=== PATIENT | female | born 1970 | race Caucasian/White ===

== ENCOUNTER → 2016-12-03 | Outpatient (CLI) | payer BC | LOC: COL.RAD 09:45 | DX: E04.2 Nontoxic multinodular goiter (principal) ==

== ENCOUNTER → 2016-12-21 | Outpatient (CLI) | payer BC | LOC: COL.VAS 13:59 | DX: R07.9 Chest pain, unspecified (principal) ==

== ENCOUNTER → 2017-12-08 | Outpatient (CLI) | payer BC ==
[~2017-12-08] VITALS: Ht 171.4 cm; Wt 115.4 kg
[~2017-12-08] MED LIST: ALDACTONE 25MG25 M1 PO; MOBIC 7.5MG7.5 MG PO; NEURONTIN300 MG/CAP PO; PROTONIX 40MG T40 MG PO; SAVELLA100 MG PO; ZESTORETIC 25 M1 TAB PO
[2017-12-08 08:13] VITALS: BP 124/100; PULSE 96
== END ==
LOC: LIGHT 07:30
DX: G47.33 Obstructive sleep apnea (adult) (pediatric) (principal); E78.5 Hyperlipidemia, unspecified; E66.9 Obesity, unspecified; Z68.39 Body mass index [BMI] 39.0-39.9, adult; Z71.3 Dietary counseling and surveillance
CPT/HCPCS: G0463

== ENCOUNTER → 2017-12-29 | Outpatient (CLI) | payer BC ==
[~2017-12-29] VITALS: Ht 171.4 cm; Wt 117.0 kg
[~2017-12-29] MED LIST changes: -ALDACTONE 25MG25 M1 PO; +ALDACTONE50 MG PO
[2017-12-29 15:10] VITALS: BP 130/80; PULSE 101
== END ==
LOC: LIGHT 14:23
DX: G47.33 Obstructive sleep apnea (adult) (pediatric) (principal); E78.5 Hyperlipidemia, unspecified; E66.9 Obesity, unspecified; Z68.39 Body mass index [BMI] 39.0-39.9, adult; Z71.3 Dietary counseling and surveillance
CPT/HCPCS: G0463

== ENCOUNTER → 2018-01-02 | Outpatient (CLI) | payer BC | LOC: LIGHT 14:12 | DX: Z01.89 Encounter for other specified special examinations (principal) ==

== ENCOUNTER → 2018-02-23 | Outpatient (CLI) | payer BC ==
[~2018-02-23] VITALS: Ht 171.4 cm; Wt 116.8 kg
[2018-02-23 16:39] VITALS: BP 124/86; PULSE 80
== END ==
LOC: LIGHT 15:53
DX: G47.33 Obstructive sleep apnea (adult) (pediatric) (principal); E78.5 Hyperlipidemia, unspecified; E66.9 Obesity, unspecified; Z68.39 Body mass index [BMI] 39.0-39.9, adult; Z71.3 Dietary counseling and surveillance
CPT/HCPCS: G0463

== ENCOUNTER → 2018-03-24 | Outpatient (CLI) | payer BC | LOC: BHSO 09:08 | DX: Z01.818 Encounter for other preprocedural examination (principal) ==

== ENCOUNTER → 2018-03-30 | Outpatient (CLI) | payer BC ==
[~2018-03-30] VITALS: Ht 171.4 cm; Wt 119.5 kg
== END ==
LOC: LIGHT 10:10
DX: G47.33 Obstructive sleep apnea (adult) (pediatric) (principal); E78.5 Hyperlipidemia, unspecified; E66.9 Obesity, unspecified; Z68.41 Body mass index [BMI] 40.0-44.9, adult; Z71.3 Dietary counseling and surveillance
CPT/HCPCS: G0463

== ENCOUNTER → 2018-04-27 | Outpatient (CLI) | payer BC ==
[~2018-04-27] VITALS: Ht 171.4 cm; Wt 117.9 kg
[2018-04-27 14:27] VITALS: BP 130/86; PULSE 84
== END ==
LOC: LIGHT 11:09
DX: G47.33 Obstructive sleep apnea (adult) (pediatric) (principal); E78.5 Hyperlipidemia, unspecified; E66.9 Obesity, unspecified; Z68.41 Body mass index [BMI] 40.0-44.9, adult; Z71.3 Dietary counseling and surveillance
CPT/HCPCS: G0463

== ENCOUNTER → 2018-05-11 | Outpatient (CLI) | payer BC ==
[~2018-05-11] VITALS: Ht 171.4 cm; Wt 117.3 kg
[2018-05-11 10:35] VITALS: BP 134/80; PULSE 64
== END ==
LOC: LIGHT 10:19
DX: G47.33 Obstructive sleep apnea (adult) (pediatric) (principal); E78.5 Hyperlipidemia, unspecified; E66.9 Obesity, unspecified; Z68.39 Body mass index [BMI] 39.0-39.9, adult; Z71.3 Dietary counseling and surveillance
CPT/HCPCS: G0463

== ENCOUNTER → 2019-01-25 | Outpatient (CLI) | payer BC | LOC: MC.RAD 08:23 | DX: Z12.31 Encounter for screening mammogram for malignant neoplasm of breast (principal) ==

== ENCOUNTER → 2020-06-24 | Outpatient (CLI) | payer BC | END | disposition still patient (30) | LOC: MC.RAD 08:00 | DX: Z12.31 Encounter for screening mammogram for malignant neoplasm of breast (principal) ==